=== PATIENT | female | born 1965 | race Caucasian/White ===

== ENCOUNTER 2019-05-01 03:24 | Emergency (ER) | payer OTHER, SELFPAY ==
[2019-05-01 03:25] VITALS: BP 212/116; PULSE 97; RESP 18; TEMP 36.7; O2SAT 98; BMI 43.1
--- NOTE | 2019-05-01 03:48 | RAD_ITS ---
STUDY: X-RAY - LEFT HUMERUS REASON FOR EXAM: Female, 53 years old. Fall. TECHNIQUE: 3 view(s) of the humerus. COMPARISON: None. FINDINGS: Comminuted fracture of the humeral head. Inferior displacement of the humeral head relative to the glenoid. There is no demonstrated soft tissue abnormality. RAD/Humerus min 2 Views IMPRESSION: Comminuted fracture of the humeral head with inferior subluxation. Electronically Signed: Aubrey Julien MD at 4:38 EDT , Service support ,
--- NOTE | 2019-05-01 03:48 | RAD_ITS ---
STUDY: X-RAY - LEFT SHOULDER REASON FOR EXAM: Female, 53 years old. Fall. TECHNIQUE: 3 view(s) of the shoulder. COMPARISON: Left humerus May 01, 2019. FINDINGS: Comminuted fracture of the humeral head with impaction. 3.6 x 1.1 cm fracture fragment displaced medially. Lateral superior displacement of a fracture fragment of the greater tuberosity. The humeral head is located more inferior than normal relative to the glenoid. However on the transscapular Y view the humeral head does not appear significantly displaced either medial or lateral. Acromioclavicular joint is normal. Normal visualized pulmonary apex. Soft tissues are grossly normal. RAD/Shoulder min 2 Views IMPRESSION: Comminuted fracture of the left humeral head. Possible inferior subluxation. Electronically Signed: Aubrey Julien MD at 4:36 EDT , Service support ,
--- NOTE | 2019-05-01 03:49 | ED.DCSUM_ITS ---
History of Present Illness Chief Complaint: Fall Informant: Patient Occurred: Hours - 1 Mechanism/Context: Fall Context: Sudden Onset - fell and caught herself on LUE vs. floor Timing: Continuous Quality of Pain: Throbbing Location: left upper arm Current Severity: Severe Maximum Severity: Severe Worsened by: movement Relieved by: remaining still Associated Symptoms: Loss of Funtion. 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 She denies any other injury but cannot move her left arm. She is right- hand dominant. Past Medical History - Allergies and Home Meds Allergies/Adverse Reactions: Allergies No Known Allergies Allergy (Verified 05/01/19 03:27) Primary Care Physician: Juana Bates DO [STAFF PHYSICIAN] - 05/02/19 (call for appt time) Smoking Status: Never smoker Drugs: None Review of Systems Eyes: Denies: Visual changes - bilaterally, Diplopia Gastrointestinal: Denies: Nausea, Vomiting Musculoskeletal: Reports: Extremity Pain. Denies: Neck pain, Back pain, Swelling Skin: Denies: Rash, Abrasions, Wounds Neurological: Denies: Headache, Weakness, Parasthesia, Numbness Physical Exam Vital Signs/Narrative: Vital Signs Temp Pulse Resp BP Pulse Ox 05/01/19 03:25 98.1 F 97 18 212/116 H 98 General: Well nourished, Well developed Head: Normocephalic, Atraumatic Eyes: Perrl, EOMI Extremeties: Holding left upper extremity in a position of comfort, very limited range of motion of elbow and shoulder due to pain. There is no bony tenderness at the left elbow or distal to this, however she is quite tender mid-distal humerus as well as proximal humerus at the shoulder. There is no deformity but she is somewhat obese limiting the exam. There is no tenderness at the clavicle or acromioclavicular joint. She is able to wiggle her fingers and is neurovascularly intact distally. The other 3 extremities are atraumatic and a full range of motion with no tenderness. Skin: Normal color, No rash, No Trauma Neurological: Alert, Oriented x3, Cranial nerves II-XII grossly intact, Normal Strength, Normal Sensation, Normal Gait, - - GCS 15 Psychological: Normal affect, Normal Mood Diagnostic/Tx/Re-eval Clinical Impression(s) from Imaging Studies Humerus X-Ray 05/01/19 03:48 IMPRESSION: Comminuted fracture of the humeral head with inferior subluxation. Electronically Signed: Aubrey Julien MD at 4:38 EDT , Service support , Shoulder X-Ray 05/01/19 03:48 IMPRESSION: Comminuted fracture of the left humeral head. Possible inferior subluxation. Electronically Signed: Aubrey Julien MD at 4:36 EDT , Service support , Upper Extremity CT 05/01/19 04:27 IMPRESSION: Comminuted fracture of the humeral head. No significant angulation. No dislocation. Electronically Signed: Aubrey Julien MD at 5:49 EDT , Service support , - Medical Decision Making X-rays show 3 versus 4 part fracture of left proximal humerus. There also may possibly be inferior subluxation versus dislocation of the humeral head. Discussed with orthopedics Dr. Bates who recommends CT. Her pain was treated with morphine. The fracture is closed and she is neurovascularly intact distally especially the radial nerve. CT shows the comminuted fracture in more detail including a split that goes down the humeral shaft. The inferior subluxation is resolved and she now appears to be reduced and in normal position with regards to the head on the glenoid. I sent these pictures to the orthopedic surgeon, at this point she recommends outpatient follow-up for further evaluation where they were also look at her CT. Patient is placed in a sling and swath and given pain medication here and for home use, advised to ice and avoid anti-inflammatories for now. She is comfortable with this plan will see orthopedics tomorrow. ED Disposition - Plan for ED Patient: Disposition: Home or Assisted Living Diagnosis: Fracture of humerus, proximal, left, closed Instructions: FRACTURE, Upper Extremity, Sling And Swathe Prescriptions: Oxycodone HCl/Acetaminophen [Percocet 5/325] 1 tab PO Q4H PRN 3 Days #18 tab PRN Reason: Pain Prescription Printed Ondansetron [Zofran] 8 mg PO Q8H PRN #12 tab PRN Reason: Nausea/Vomiting Prescription Printed Referrals: Juana Bates DO [STAFF PHYSICIAN] - 05/02/19 (call for appt time)
[2019-05-01] MEDS: morphine 10 MG/ML Syringe 4 MG SC (03:56)
--- NOTE | 2019-05-01 04:27 | CT_ITS ---
STUDY: UPPER EXTREMITY WITHOUT CONTRAST LEFT REASON FOR EXAM: Female, 53 years old. Humeral head fracture after fall. RADIATION DOSAGE (If Supplied By Facility): CTDIvol = ( 73.76 ) mGy, DLP = ( 4138.46 ) mGycm. Individualized dose optimization techniques were used for this CT.? TECHNIQUE: Axial images through the left shoulder without administration of intravenous contrast with sagittal and coronal reconstructions as well as 3-D color renditions. COMPARISON: Left shoulder and humerus May 01, 2019. FINDINGS: Displaced comminuted fracture of the humeral head with impaction. Transverse and vertical major fracture lines. Medial displaced 2.6 x 0.5 cm fracture fragment. Superior displaced 4.4 x 2.2 cm fragment of the greater tuberosity. No significant angulation. Additional smaller fracture fragments. The humeral articular surface with the glenoid appears intact. Small joint effusion. No dislocation. Degenerative changes inferior aspect of the acromioclavicular joint. Acromioclavicular joint is not widened. Normal scapula. No rib fractures. Left lung apex is clear. CT/Extremity Upper without Contra IMPRESSION: Comminuted fracture of the humeral head. No significant angulation. No dislocation. Electronically Signed: Aubrey Julien MD at 5:49 EDT , Service support ,
[2019-05-01] MEDS: Morphine 4 MG/ML Syringe IV (04:35)
[2019-05-01 04:36] VITALS: RESP 16
[2019-05-01] MEDS: oxyCODONE 5 MG Tablet 10 MG PO (06:05)
[2019-05-01 06:15] VITALS: PULSE 77; RESP 18; O2SAT 99
== END 2019-05-01 06:34 | disposition home or self-care (01) ==
PROVIDERS: Emergency Provider Emergency Medicine
DX: S42.292A Other displaced fracture of upper end of left humerus, initial encounter for closed fracture (principal); W01.0XXA Fall on same level from slipping, tripping and stumbling without subsequent striking against object, initial encounter; Y93.01 Activity, walking, marching and hiking; Y92.230 Patient room in hospital as the place of occurrence of the external cause; Y99.0 Civilian activity done for income or pay
CPT/HCPCS: 73030; 73060; 73200; 96372; 96374; 99285; A4216

== ENCOUNTER → 2022-01-10 10:38 | Outpatient (CLI) | payer OTHER, SELFPAY ==
--- NOTE | 2022-01-10 10:42 | BI_ITS ---
MAMMOGRAPHY - BILATERAL SCREENING REASON FOR EXAM: Female, 56 years old. Routine annual screening examination. PERTINENT HISTORY: Non-contributory. TECHNIQUE: Digital bilateral breast santos (3D mammographic acquisition) in the CC and MLO projections. 2-D mediolateral oblique (MLO) and craniocaudad (CC) views of both breasts were obtained. CAD: Full Field Digital Mammography with Computer Added Detection was performed. COMPARISON: None. Baseline examination. FINDINGS: Breast Composition: The breasts are almost entirely fatty. There are no dominant masses or suspicious calcifications. No other significant abnormalities are identified. BI/SCRN MAMM (CAD)W/SANTOS BILAT IMPRESSION: Negative screening mammogram. Yearly followup mammogram recommended. (A) ASSESSMENT CATEGORY: BIRADS Category 1: Negative. A letter regarding these results will be sent to the patient by the facility within 30 days. Approximately 10% of breast cancers are not detected by mammography. A normal mammogram should not delay biopsy of a clinically suspicious abnormality. [id number] Electronically Signed: Sabino Jasso MD at 11:51 EDT ,
== END ==
DX: Z12.31 Encounter for screening mammogram for malignant neoplasm of breast (principal)
CPT/HCPCS: 77063; 77067